=== PATIENT | male | born 1965 | race Caucasian/White ===

== ENCOUNTER 2017-10-23 18:32 | Emergency (ER) | payer OTHER ==
[~2017-10-23] VITALS: Ht 180.3 cm; Wt 89.4 kg
[2017-10-23] MEDS ORDERED: METFORMIN HCL500 MG PO (18:48)
[2017-10-23 19:52] VITALS: BP 188/100
== END 2017-10-23 19:55 | disposition home or self-care (01) ==
LOC: M.ERS 18:32
DX: S01.01XA Laceration without foreign body of scalp, initial encounter (principal); S01.81XA Laceration without foreign body of other part of head, initial encounter; I10 Essential (primary) hypertension; E11.9 Type 2 diabetes mellitus without complications; X99.8XXA Assault by other sharp object, initial encounter; Y93.89 Activity, other specified; Y92.89 Other specified places as the place of occurrence of the external cause; Y99.8 Other external cause status